=== PATIENT | male | born 2000 | race Caucasian/White ===

== ENCOUNTER 2024-06-27 14:31 | Emergency (ER) | payer MEDICAID ==
[~2024-06-27] VITALS: Ht 172.7 cm; Wt 79.4 kg
[2024-06-27 14:40] VITALS: BP 132/73; PULSE 99; RESP 16; TEMP 98.8; O2SAT 97
[2024-06-27] MEDS ORDERED: BENZ200C52 MT (16:30)
== END 2024-06-27 16:37 | disposition home or self-care (01) ==
LOC: ER 14:31
DX: B34.9 Viral infection, unspecified (principal)
CPT/HCPCS: 71045; 99283; Z7610